=== PATIENT | female | born 2000 | race African-American/Black ===

== ENCOUNTER 2019-01-23 05:50 | Emergency (ER) | payer MEDICAID ==
[~2019-01-23] VITALS: Ht 174 cm; Wt 120.2 kg
--- NOTE | 2019-01-23 06:15 | NUR ---
ED Nurse Note: Patient walked in to ED due to left foot pain 01/12. Patient denyed injury, states that pain is so bad, it's shooting all the way up to her leg. AAO x4, VSS at this time, skin is dry warm to touch.
[2019-01-23] MEDS ORDERED: HYDROcodone/Acetamin 5/325 tab ORAL ONE (06:30)
--- NOTE | 2019-01-23 07:08 | Emergency Room Report ---
History of Present Illness General Chief Complaint: Lower Extremity Injury Source: Patient Present Illness HPI Presents with 1 week of intermittent left lateral foot pain. At times is severe. Any trauma or twisting that she was aware of. At this time she is complaining about 10/10 pain which is constant and aching. She took 800 mg Motrin half an hour before coming in. She has been taking it almost daily through the whole week and feels it has not helped. There is no calf pain or edema. She denies any fevers or chills. She has a rash that is been insignificant to her. She is most concerned about whether she has diabetes at this time. Denies polies. Patient suffers from insomnia and takes trazodone. Her psychiatrist is her only physician. Allergies: Coded Allergies: No Known Allergies (Unverified , 01/23/19) Patient History Past Medical History: see triage record Social History: Denies: smoking Social History Narrative Drove herself here Last Menstrual Period: 01/03/19 Now: No Reviewed Nursing Documentation: PMH: Agreed; PSxH: Agreed Nursing Documentation-PMH Past Medical History: No Stated History Hx Asthma: Yes Review of Systems Constitutional: Reports: see HPI Musculoskeletal: Reports: see HPI Skin: Reports: see HPI Psychiatric: Reports: see HPI Neurological: Reports: see HPI Endocrine: Reports: see HPI Physical Exam Vital Signs Date Time Temp Pulse Resp B/P (MAP) Pulse Ox O2 Delivery O2 Flow Rate FiO2 01/23/19 06:00 98.2 79 22 140/83 (102) 97 Room Air Sp02 EP Interpretation: reviewed, normal General Appearance: well appearing, no apparent distress, GCS 15 Head: normocephalic Eyes: bilateral eye normal inspection, bilateral eye PERRL ENT: moist mucus membranes Neck: full range of motion Cardiovascular #1: regular rate, rhythm Cardiovascular #2: 2+ radial (L), 2+ dorsalis pedis (L) Gastrointestinal: normal inspection Musculoskeletal: other - Ankle nontender and stable, tenderness - Left lateral fifth metatarsal -no swelling Neurologic: alert, distal neuro normal, grossly normal Psychiatric: mood/affect normal Skin: rash - Tinea pedis bilaterally, other - Minimal erythema without warmth over area where patient has been rubbing the pain Medical Decision Making Diagnostic Impression: Primary Impression: Left foot pain Additional Impression: Tinea pedis Qualified Codes: B35.3 - Tinea pedis ER Course Patient presents with left lateral foot pain without history of trauma. Differential includes cellulitis, unobserved trauma, peripheral neuropathy, neuroma amongst others. Evaluation will be with foot x-ray and Accu-Chek. Patient will be given a dose of [place] as she is states that she can get a ride home. Accucheck 95 Patient not improved with [place]. Percocet ordered. Long discussion about the need for outpatient follow-up and a clinic or physician who might be able to follow her. Daniel wrap applied by me. Tension and position excellent with some improvement. Distal neurovascular exam checked by me and normal. Patient stable for outpatient observation and treatment. Other X-Ray Diagnostic Results Other X-Ray Diagnostic Results : X-Ray ordered: Left foot # of Views/Limited Vs Complete: 3 View Indication: Pain EP Interpretation: Yes Interpretation: no dislocation, no soft tissue swelling, no fractures Impression: No acute disease Electronically Signed by: Electronically signed by Jin Chahal MD Last Vital Signs Date Time Temp Pulse Resp B/P (MAP) Pulse Ox O2 Delivery O2 Flow Rate FiO2 01/23/19 08:50 97.6 79 22 135/90 97 Room Air Status: improved Disposition: HOME, SELF-CARE Condition: Improved Scripts Tolnaftate (TINACTIN) 30 Gm Cream..g. 1 APPLIC TP BID, #60 GM 1 Refill Prov: Jin Chahal MD 01/23/19 Ibuprofen* (MOTRIN*) 600 Mg Tablet 600 MG ORAL Q6H PRN for For Pain, #20 TAB 0 Refills Prov: Jin Chahal MD 01/23/19 Oxycodone/Acetaminophen 5-325* (PERCOCET 5-325 MG TABLET*) 1 Each Tablet 1 TAB ORAL Q6H PRN for For Pain, #8 TAB Prov: Jin Chahal MD 01/23/19 Referrals: NOT CHOSEN [facility]/,REFERRING (PCP) Jin Chahal MD Jan 23, 2019 07:08
--- NOTE | 2019-01-23 07:10 | NUR ---
ED Nurse Note: PT and report received from CA Mendez. Will continue with plan of care for PT, awaiting xray to be done at bedside.
--- NOTE | 2019-01-23 07:12 | NUR ---
ED Nurse Note: Made rounds and tried to assess PT, but PT seen grabbing L-foot, intermittent crying. PT stops crying, became very aggressive when asked about what exactly happened and if she fell PT response, "you guys don't talk about it during shift change, same question like four times." PT on RA, no S/S of respiratory distress. Will continue to monitor.
[2019-01-23] MEDS ORDERED: TINACTIN30 GM TP (08:26)
[2019-01-23] MEDS ORDERED: IBUPROFEN600 MG ORAL (08:26)
[2019-01-23] MEDS ORDERED: PERCOCET 5-3251 EACH ORAL (08:26)
[2019-01-23] MEDS ORDERED: oxyCODONE HCL/Acetaminophen 5/325mg ORAL ONE (08:30)
[2019-01-23 08:50] VITALS: BP 135/90
--- NOTE | 2019-01-23 12:36 | Diagnostic Imaging Report ---
Indication: Left foot pain Technique: 3 views left foot Comparison: none Findings: No acute fractures. No dislocations. The joint spaces are preserved. Impression: Negative
== END 2019-01-23 08:50 | disposition home or self-care (01) ==
LOC: EMR 06:18
DX: M79.672 Pain in left foot (principal); B35.3 Tinea pedis; J45.909 Unspecified asthma, uncomplicated
CPT/HCPCS: 73630; 82962; Z7502; 99283